=== PATIENT | female | born 1990 | race Caucasian/White ===

== ENCOUNTER → 2020-05-15 10:20 | Outpatient (BNVA) | payer OTHER, SELFPAY | PROVIDERS: Visit Provider Advanced Practice Midwife | DX: Z76.89 Persons encountering health services in other specified circumstances (principal) ==

== ENCOUNTER 2020-07-09 15:37 | Outpatient (REF) | payer OTHER, SELFPAY | END 2020-07-09 15:38 | disposition home or self-care (01) | LOC: HO.LAB 15:37 | PROVIDERS: PCP Internal Medicine; Visit Provider Internal Medicine | DX: Z20.822 Contact with and (suspected) exposure to COVID-19 (principal) | CPT/HCPCS: 36415; C9803; U0003; U0005 ==

== ENCOUNTER 2020-07-22 15:41 | Outpatient (REF) | payer OTHER, SELFPAY | END 2020-07-22 15:42 | disposition home or self-care (01) | LOC: HO.LAB 15:41 | PROVIDERS: Visit Provider Internal Medicine | DX: Z20.822 Contact with and (suspected) exposure to COVID-19 (principal) | CPT/HCPCS: 36415; C9803; U0003; U0005 ==

== ENCOUNTER 2020-07-31 15:38 | Outpatient (REF) | payer OTHER, SELFPAY ==
--- NOTE | ~2020-07-31 | US_ITS ---
EXAMINATION: US PELVIS US TRANSVAGINAL CLINICAL INFORMATION: Pelvic and perineal pain. COMPARISON: None TECHNIQUE: Ultrasound of the pelvis is performed using both transabdominal and transvaginal transducers along with Doppler. Transvaginal imaging is performed due to inadequate visualization transabdominally. FINDINGS: UTERUS: The uterus is anteverted and measures 9.8 x 4 x 5.5 cm. There is an IUD present within the endometrial canal. This limits evaluation of the endometrial thickness. The uterus is smooth in contour and has normal myometrial echogenicity. No visible fibroid. ADNEXA: Both ovaries are visualized. There is normal color flow to the adnexa. There is no ovarian torsion. There is no pelvic ascites or fluid collection. Right ovary measures 5.2 x 4.8 x 4 cm. Volume 52.3 mL. There is a 4.4 x 3.5 x 4.2 cm anechoic cyst. There are some low-grade internal echoes anteriorly, artifactual versus mild internal complexity. Left ovary measures 2.6 x 2.2 x 2.0 cm. Volume 6 mL. US/US pelvic complete IMPRESSION: 1. Right ovarian mildly complex 4.4 x 3.5 x 4.2 cm cyst. Recommend followup ultrasound in 6 weeks. 2. IUD present within the endometrial canal.
--- NOTE | ~2020-07-31 | US_ITS ---
EXAMINATION: US PELVIS US TRANSVAGINAL CLINICAL INFORMATION: Pelvic and perineal pain. COMPARISON: None TECHNIQUE: Ultrasound of the pelvis is performed using both transabdominal and transvaginal transducers along with Doppler. Transvaginal imaging is performed due to inadequate visualization transabdominally. FINDINGS: UTERUS: The uterus is anteverted and measures 9.8 x 4 x 5.5 cm. There is an IUD present within the endometrial canal. This limits evaluation of the endometrial thickness. The uterus is smooth in contour and has normal myometrial echogenicity. No visible fibroid. ADNEXA: Both ovaries are visualized. There is normal color flow to the adnexa. There is no ovarian torsion. There is no pelvic ascites or fluid collection. Right ovary measures 5.2 x 4.8 x 4 cm. Volume 52.3 mL. There is a 4.4 x 3.5 x 4.2 cm anechoic cyst. There are some low-grade internal echoes anteriorly, artifactual versus mild internal complexity. Left ovary measures 2.6 x 2.2 x 2.0 cm. Volume 6 mL. US/US transvaginal IMPRESSION: 1. Right ovarian mildly complex 4.4 x 3.5 x 4.2 cm cyst. Recommend followup ultrasound in 6 weeks. 2. IUD present within the endometrial canal.
== END 2020-07-31 15:39 | disposition home or self-care (01) ==
LOC: HO.US 15:38
PROVIDERS: Visit Provider Advanced Practice Midwife
DX: R10.2 Pelvic and perineal pain (principal)
CPT/HCPCS: 76830; 76856

== ENCOUNTER 2020-08-15 13:53 | Outpatient (REF) | payer OTHER, SELFPAY ==
[2020-08-16 13:25] LABS: BV Int Neg Control Negative (Negative); BV Int Pos Control Positive (Positive)
== END 2020-08-15 13:54 | disposition home or self-care (01) ==
LOC: HO.LAB 13:53
PROVIDERS: Visit Provider Advanced Practice Midwife
DX: Z01.419 Encounter for gynecological examination (general) (routine) without abnormal findings (principal); N89.8 Other specified noninflammatory disorders of vagina; R10.2 Pelvic and perineal pain; B36.9 Superficial mycosis, unspecified; N83.299 Other ovarian cyst, unspecified side; Z86.16 Personal history of COVID-19
CPT/HCPCS: 87480; 87510; 87660

== ENCOUNTER 2020-09-04 13:24 | Outpatient (REF) | payer OTHER, SELFPAY ==
--- NOTE | ~2020-09-04 | US_ITS ---
EXAMINATION: ULTRASOUND OF THE PELVIS CLINICAL INFORMATION: Pelvic and perineal pain. COMPARISON: 07/31/2020. TECHNIQUE: Transabdominal and transvaginal pelvic ultrasound. A transvaginal study was performed in addition to the transabdominal study which did not yield an adequate examination of the uterus and ovaries due to superimposed distended gas-filled loops of bowel. FINDINGS: The uterus is normal in size and appearance, measuring 8.9 x 4.4 x 5.9 cm longitudinally, anteroposteriorly and transversely. The endometrial stripe thickness is normal, measuring 0.5 cm in thickness. There is an IUD in place. No focal myometrial mass is seen. The ovaries bilaterally are visualized, with the right ovary measuring 5.9 x 3.9 x 4.5 cm and the left ovary measuring 2.6 x 2.2 x 1.7 cm. Persistent appearance of a cyst in the right ovary measuring 5.1 x 3.1 x 3.8 cm. There is a thin internal septation. Mild internal echoes. This is similar in appearance to prior. No pelvic free fluid. US/US pelvic complete IMPRESSION: Similar appearance of the right ovarian cyst with a thin internal septation. Given the presence of the septation, additional follow-up can be performed in 6-12 weeks.
--- NOTE | ~2020-09-04 | US_ITS ---
EXAMINATION: ULTRASOUND OF THE PELVIS CLINICAL INFORMATION: Pelvic and perineal pain. COMPARISON: 07/31/2020. TECHNIQUE: Transabdominal and transvaginal pelvic ultrasound. A transvaginal study was performed in addition to the transabdominal study which did not yield an adequate examination of the uterus and ovaries due to superimposed distended gas-filled loops of bowel. FINDINGS: The uterus is normal in size and appearance, measuring 8.9 x 4.4 x 5.9 cm longitudinally, anteroposteriorly and transversely. The endometrial stripe thickness is normal, measuring 0.5 cm in thickness. There is an IUD in place. No focal myometrial mass is seen. The ovaries bilaterally are visualized, with the right ovary measuring 5.9 x 3.9 x 4.5 cm and the left ovary measuring 2.6 x 2.2 x 1.7 cm. Persistent appearance of a cyst in the right ovary measuring 5.1 x 3.1 x 3.8 cm. There is a thin internal septation. Mild internal echoes. This is similar in appearance to prior. No pelvic free fluid. US/US transvaginal IMPRESSION: Similar appearance of the right ovarian cyst with a thin internal septation. Given the presence of the septation, additional follow-up can be performed in 6-12 weeks.
== END 2020-09-04 13:25 | disposition home or self-care (01) ==
LOC: HO.US 13:24
PROVIDERS: PCP Internal Medicine; Visit Provider Advanced Practice Midwife
DX: R10.2 Pelvic and perineal pain (principal); N83.299 Other ovarian cyst, unspecified side
CPT/HCPCS: 76830; 76856

== ENCOUNTER → 2020-09-11 12:14 | Outpatient (BNVA) | payer OTHER, SELFPAY | PROVIDERS: PCP Internal Medicine; Visit Provider Advanced Practice Midwife ==

== ENCOUNTER → 2020-09-16 13:16 | Outpatient (BNVA) | payer OTHER, SELFPAY | PROVIDERS: PCP Internal Medicine; Visit Provider Advanced Practice Midwife | DX: Z30.432 Encounter for removal of intrauterine contraceptive device (principal) | CPT/HCPCS: 58301 ==

== ENCOUNTER 2020-11-24 11:09 | Outpatient (REF) | payer OTHER, SELFPAY ==
--- NOTE | ~2020-11-24 | US_ITS ---
EXAMINATION: PELVIC ULTRASOUND CLINICAL INFORMATION: Follow-up ovarian cyst COMPARISON: Previous pelvic ultrasound most recent 09/04/2020 TECHNIQUE: Transabdominal and transvaginal pelvic ultrasound was performed. Transvaginal exam was performed for better visualization of uterus and ovaries. FINDINGS: There is an intrauterine gestational sac and yolk sac. Mean sac diameter measures 0.9 cm suggesting gestational age of 5 weeks 3 days. The uterus is anteverted and measures 9 x 5 x 5.3 cm in dimension. No focal uterine lesion is seen. There are nabothian cysts in the cervix. The right ovary measures 3.3 x 1.8 x 1.9 cm and is normal-appearing. The previously identified 5 x 3 x 4 cm complex cyst on 09/04/2020 exam is no longer seen. The left ovary measures 2.5 x 2.4 x 3.2 cm. There are 2 new left ovarian cysts. There is a simple cyst measuring 2.4 x 1.6 x 2.3 cm in the left ovary. There is a complex cyst measuring 1.9 x 1.1 x 2.2 cm in the left ovary. There is no fluid in the pelvis. US/US pelvic and transvaginal IMPRESSION: Intrauterine gestational sac and yolk sac. Mean sac diameter suggests gestational age of 5 weeks 3 days. Resolved right ovarian complex cyst. 2 left ovarian cysts, largest measuring 2.4 x 1.6 x 2.3 cm.
== END 2020-11-24 11:10 | disposition home or self-care (01) ==
LOC: HO.US 11:09
PROVIDERS: Visit Provider Advanced Practice Midwife
DX: N83.299 Other ovarian cyst, unspecified side (principal)
CPT/HCPCS: 76830; 76856

== ENCOUNTER → 2020-11-25 15:46 | Outpatient (BNVA) | payer OTHER, SELFPAY | PROVIDERS: PCP Internal Medicine; Visit Provider Advanced Practice Midwife ==

== ENCOUNTER 2021-02-03 12:48 | Outpatient (REF) | payer OTHER, SELFPAY ==
--- NOTE | ~2021-02-03 | US_ITS ---
EXAMINATION: US PELVIS CLINICAL INFORMATION: Left ovarian cyst COMPARISON: Previous pelvic ultrasound November 2020 TECHNIQUE: Ultrasound of the pelvis is performed using both transabdominal and transvaginal transducers along with Doppler. Transvaginal imaging is performed due to inadequate visualization transabdominally. FINDINGS: Uterus: The uterus is anteverted and measures 8.9 x 4.3 x 6.6 cm. Intrauterine is no longer seen. The double wall endometrial thickness is 4 mm. The uterus is smooth in contour and has normal myometrial echogenicity. No visible fibroid. Adnexa: Both ovaries are visualized. There is normal color flow to the adnexa. There is no ovarian torsion. There is no pelvic ascites or fluid collection. Right ovary measures 3.5 x 1.8 x 2.3 cm. Left ovary measures 2.9 x 1.9 x 2.2 cm. US/US pelvic and transvaginal IMPRESSION: Normal pelvic ultrasound. No ovarian cyst. Intrauterine no longer seen.
== END 2021-02-03 12:49 | disposition home or self-care (01) ==
LOC: HO.US 12:48
PROVIDERS: PCP Internal Medicine; Visit Provider Advanced Practice Midwife
DX: N83.202 Unspecified ovarian cyst, left side (principal)
CPT/HCPCS: 76830; 76856

== ENCOUNTER → 2021-02-19 09:21 | Outpatient (BNVA) | payer OTHER, SELFPAY | PROVIDERS: PCP Internal Medicine; Visit Provider Advanced Practice Midwife ==

== ENCOUNTER 2021-02-24 11:01 | Emergency (ER) | payer OTHER, SELFPAY ==
[2021-02-24 11:12] VITALS: BP 124/75; PULSE 88; RESP 16; TEMP 36.4; O2SAT 98; BMI 31.3
--- NOTE | 2021-02-24 11:43 | ED.NECK ---
HPI - Neck Pain/Injury General Chief Complaint: Neck Pain/Injury Stated Complaint: neck pain Time Seen by Provider: 02/24/21 11:43 Source: patient Mode of arrival: ambulatory Limitations: no limitations History of Present Illness HPI Narrative: This is a 30-year-old female who is coming from a detention with 3 days of atraumatic neck pain and tightness. She states that she is under a lot of stress right now and she notes that when she is under a lot of stress she gets muscle tension and eventually her neck becomes stiff. She states this frequently happens to her. She is unable to move her head side to side, and she states that she can only look up and down however, this causes her pain. She denies falls, loss of consciousness, shortness of breath, chest pain, changes in bowel or bladder patterns, numbness, paresthesias, changes in vision. MD complaint: neck pain Onset (ago): day(s) (Three days worse today) Place: other (Currently homeless detention) Severity: moderate Quality: aching and spasming Duration: constant and progressively worsening Relieving factors: none Exacerbating factors: movement of neck Associated symptoms: none Treatments prior to arrival: none Related Data Previous Rx's Medication Instructions Recorded medroxyprogesterone 150 mg/mL 150 mg IM [id number] #1 ml 02/19/21 intramuscular suspension (Depo-Provera) cyclobenzaprine 10 mg tablet 10 mg PO Q8H PRN #14 tab 02/24/21 lidocaine 5 % topical patch 1 patch TOPICAL DAILY #15 ea 02/24/21 (Lidoderm) naproxen 500 mg tablet 500 mg PO BID PRN #10 tab 02/24/21 Allergies Allergy/AdvReac Type Severity Reaction Status Date / Time shellfish derived Allergy Mild Swelling Verified 02/19/21 09:48 dog dander Allergy Unknown Unknown Verified 02/19/21 09:48 Fish Containing Products Allergy Unknown Unknown Verified 02/19/21 09:48 cat dander Allergy Unknown Verified 02/19/21 09:48 Review of Systems Review of Systems: Constitutional : No trauma, No Weight loss, No Fever, No Chills, ENT/Mouth : No Hearing loss, No Ear Pain, No Nasal Congestion, No Sinus Pain, No Hoarseness, No sore throat, No Rhinorrhea, No Swallowing Difficulty Cardiovascular : No Chest Pain, No SOB Respiratory : No Cough, No Dyspnea Gastrointestinal : No Nausea, No Vomiting, No Diarrhea, No abdominal Pain, No Hematochezia, No Melena Genitourinary : No Dysuria, No Urinary Frequency, No Hematuria, No Urinary or Bowel Incontinence/retention Musculoskeletal : + Neck pain, No Back pain, No joint stiffness, No joint swelling Skin : No Skin Lesions, No rash or signs of infection Neuro : nO Tingling to b/l arms/legs, No Weakness, No radiation, No Numbness, No headache, no loss of bowel or bladder incontinence, no saddle anesthesia Denies history of IV drug usage. Yes all other systems are reviewed and are negative [facility] Past Medical History Attestation statement: The following information was validated with the patient. Source: old records reviewed Medical History Left ovarian cyst Surgical History History of D&C Family History Family History Father High cholesterol Arthritis Diabetes Hypertension Mother Diabetes Maternal Grandmother Breast cancer Social History Social History Alcohol intake: never Patient Tobacco Use Status: Never used Tobacco Advance Directives: No Advance Directives Information Provided: No Patient : No Sexual orientation: Straight/Heterosexual Gender identity: Female Physical Exam Vital Signs: Vital Signs: Last Vital Signs Temp 97.5 F 02/24/21 11:12 Pulse 88 02/24/21 11:12 Resp 16 02/24/21 11:12 BP 124/75 02/24/21 11:12 Pulse Ox 98 02/24/21 11:12 Body Mass Index 31.3 vital signs have been reviewed as normal and appeared to be correct. Blood pressure normal. Heart rate normal. Respiration rate normal. Temperature normal. Oxygen saturation normal. Appearance: Alert. Oriented X3. No acute distress. Head: Normal external exam. Normocephalic. Atraumatic. Eyes: PERRLA. EOMI. Conjunctiva and sclera normal. Eyelids normal. ENT: Pharynx normal. Uvula midline. Moist mucous membranes. Neck: Normal inspection. +Stiff neck with painful ROM . No adenopathy. Thyroid Normal. Trachea midline. No meningeal signs. No neck mass noted. Tender to palpation of bilateral paracervical musculature and mid cervical tenderness. No step-offs or deformities noted. Patient neuro intact bilaterally and distally on all 4 extremities. Reflexes intact bilaterally and distally in all 4 extremities. No rashes/lesion/induration/fluctuance or signs of infection noted. No edema noted. CVS: Normal heart rate and rhythm. Heart sound normal. No murmurs noted. Pulses normal throughout. Respiratory: No respiratory distress. Painless inspiration. Breath sounds normal. No wheezes/rales/rhonchi noted. Chest nontender. No accessory muscle usage noted or decreased air movement noted. Back: Full range of motion noted. No obvious deformities, or edema. Full ROM in back and lower extremities. + cervical paraspinous tenderness bilaterally Skin: Skin warm and dry. Normal skin color. Normal skin turgor. No rashes/lesions/lacerations noted. Extremities: Extremities exhibit normal range of motion. Extremities nontender. Neuro: Oriented X 3. No motor deficit. No sensory deficit. Reflexes normal. Normal steady gait. Course Course Course Narrative: This is a 30-year-old female that presents with 3 days of progressive neck pain and stiffness. She denies any trauma. She states this frequently happens to her when she is stressed out. She states she is under a lot of stress. She is currently staying at a detention and has 2 kids. She denies any numbness, tingling, chest pain, changes in bowel habits. Upon physical examination there is tenderness to the paraspinous muscles in the cervical region, limited range of motion due to pain and muscle tightness. Based off of the physical exam findings, and patient history imaging is not warranted at this time. This is likely a muscular process. Neck spasms. She will be sent home on cyclobenzaprine 10 mg, naproxen, and Lidoderm cream. She has also been instructed to return to the emergency department new or worsening symptoms. And she has also been told to follow-up with her PCP. [facility] - Neck Pain/Injury Medical Records Attestation: I reviewed the patient's medical records. Discharge Plan Discharge Clinical Impression: Muscle spasms of neck, Neck pain Patient Disposition: Home, Self-Care Instructions: Neck Pain (ED), Chronic Neck Pain (DC) Additional Instructions: Take all medications as prescribed. Cyclobenzaprine kidney is sleepy please do not drive on this medication, it may be best for you to take this at night. You can apply moist heat to the area. Follow-up with your PCP Return to the emergency department with new or worsening symptoms, or if he develops fevers, chills, shortness of breath, chest pain, bladder/bowel incontinence, or if you cannot feel your legs. Prescriptions: New naproxen 500 mg tablet 500 mg PO BID PRN (Reason: pain) Qty: 10 RF: 0 lidocaine [Lidoderm] 5 % adhesive patch,medicated 1 patch topical DAILY Qty: 15 RF: 0 cyclobenzaprine 10 mg tablet 10 mg PO Q8H PRN (Reason: Muscle spasm) Qty: 14 RF: 0 No Action medroxyprogesterone [Depo-Provera] 150 mg/mL suspension 150 mg IM [id number] Qty: 1 RF: 3 Referrals: Pal Barajas MD [Primary Care Provider] - 2 days Stand Alone Forms: Work/School Release
== END 2021-02-24 12:06 | disposition home or self-care (01) ==
PROVIDERS: Emergency Provider Emergency Medicine; PCP Internal Medicine
DX: M62.838 Other muscle spasm (principal); M54.2 Cervicalgia; Z79.899 Other long term (current) drug therapy; Z59.0 Homelessness
CPT/HCPCS: 99283

== ENCOUNTER 2022-01-14 13:57 | Outpatient (REF) | payer OTHER, SELFPAY ==
[2022-01-15 03:27] LABS: CT PCR NOT DETECTED (Not Detect.); NG PCR NOT DETECTED (Not Detect.)
[2022-01-15 13:23] LABS: BV Int Neg Control Negative (Negative); BV Int Pos Control Positive (Positive)
[2022-01-20 22:07] LABS: HPV mRNA E6/E7 rflx Not Detected (Not Detected)
== END 2022-01-14 13:58 | disposition home or self-care (01) ==
LOC: HO.LAB 13:57
PROVIDERS: Visit Provider Advanced Practice Midwife
DX: Z01.419 Encounter for gynecological examination (general) (routine) without abnormal findings (principal); Z11.51 Encounter for screening for human papillomavirus (HPV)
CPT/HCPCS: 87480; 87491; 87510; 87591; 87624; 87660; 88142

== ENCOUNTER 2022-02-03 22:32 | Emergency (ER) | payer OTHER, SELFPAY ==
--- NOTE | ~2022-02-03 | XR_ITS ---
EXAMINATION: XR HAND, RIGHT CLINICAL INFORMATION: Trauma/laceration COMPARISON: None TECHNIQUE: PA, lateral, and oblique views of the right hand. FINDINGS: The bones and soft tissues are normal. No fracture. Alignment is anatomic. Joint spaces are maintained. No erosions or soft tissue calcifications. No radiopaque foreign bodies are seen. XR/XR hand RT min 3V IMPRESSION: Normal right hand.
[2022-02-03 23:23] VITALS: BP 129/86; PULSE 78; RESP 16; TEMP 36.4; O2SAT 100; BMI 30.7
[2022-02-04] VITALS: BP 121/72; PULSE 97; RESP 16; TEMP 37.1; O2SAT 97
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
[2022-02-04] MEDS: Ibuprofen 600 MG TABLET PO (01:19)
[2022-02-04] MEDS: Diphth,Pertus(ACell),Tet Adult 0.5 ML SYRINGE IM (01:20)
[2022-02-04] MEDS: Lidocaine HCl 2 % MPF 5 ML VIAL 10 ML SUBCUT (01:30)
[2022-02-04 03:01] VITALS: BP 153/85; PULSE 67; RESP 16; TEMP 36.6; O2SAT 98
== END 2022-02-04 03:04 | disposition home or self-care (01) ==
PROVIDERS: Emergency Provider Emergency Medicine; PCP Internal Medicine
DX: S61.411A Laceration without foreign body of right hand, initial encounter (principal); X78.8XXA Intentional self-harm by other sharp object, initial encounter; Z72.89 Other problems related to lifestyle; Z59.01 Sheltered homelessness; Y93.89 Activity, other specified; Y92.89 Other specified places as the place of occurrence of the external cause; Y99.9 Unspecified external cause status
CPT/HCPCS: 12001; 73130; 90471; 90715; 99283; 99284

== ENCOUNTER 2022-02-18 09:18 | Emergency (ER) | payer OTHER, SELFPAY ==
[2022-02-18 09:19] VITALS: BP 125/77; PULSE 70; RESP 18; TEMP 36.6; O2SAT 100; BMI 30.7
--- NOTE | 2022-02-18 09:53 | ED.GENADULT ---
HPI - General Adult General Chief complaint: General Medical Stated complaint: Stitches removal Time Seen by Provider: 02/18/22 09:53 Source: patient and old records reviewed Mode of arrival: ambulatory Limitations: no limitations History of Present Illness complaint: sutures removal Onset (ago): day(s) (02/04) Location: right and upper extremity Radiation: non-radiation Severity: mild Relieving factors: none Exacerbating factors: none Associated symptoms: denies other symptoms Treatments prior to arrival: other (4 sutures) Related Data Home Medications Medication Instructions Recorded Confirmed ibuprofen 800 mg tablet 800 mg PO Q8H PRN 08/13/21 01/14/22 Previous Rx's Medication Instructions Recorded metronidazole 500 mg tablet 500 mg PO BID 7 days #14 tabs 01/28/22 Allergies Allergy/AdvReac Type Severity Reaction Status Date / Time shellfish derived Allergy Mild Swelling Verified 02/03/22 23:23 dog dander Allergy Unknown Unknown Verified 02/03/22 23:23 Fish Containing Products Allergy Unknown Unknown Verified 02/03/22 23:23 cat dander Allergy Unknown Verified 02/03/22 23:23 gauze AdvReac Mild rash, Uncoded 02/03/22 23:23 itch, redness Review of Systems Review of Systems: Constitutional : No Fever, No Chills, Cardiovascular : No Chest Pain, No SOB Respiratory : No Dyspnea Gastrointestinal : No abdominal pain Musculoskeletal : No Joint Swelling Skin : No rash, positive skin laceration Neuro : No Weakness, No Numbnes PMFSH Past Medical History Attestation statement: The following information was validated with the patient. Medical History Costochondritis Left ovarian cyst Migraines Obesity Surgical History History of D&C Family History Family History Father High cholesterol Arthritis Diabetes Hypertension Mother Diabetes Maternal Grandmother Breast cancer Social History Social History Housing: Homeless (Living in a senior care) Alcohol intake: never Patient Tobacco Use Status: Never used Tobacco e-Cigarette/Vaping Use: Never Used Second Hand Smoke Exposure: No Advance Directives: No service: No Current occupational status: unemployed Sexual orientation: Straight/Heterosexual Gender identity: Female Cognitive needs: No Hearing needs: No Vision needs: No Physical Exam ED Vital Signs: Vital Signs - 24 hr 02/18/22 09:19 Temperature 98 F Pulse Rate 70 Respiratory Rate 18 Blood Pressure 125/77 Pulse Oximetry 100 Oxygen Delivery Method Room Air BMI result Body Mass Index 30.7 Appearance: Alert. Oriented X3. No acute distress. Eyes: Pupils equal, round and reactive to light. ENT: Pharynx normal. Neck: Normal inspection. Neck supple. CVS: =Pulses normal. Respiratory: No respiratory distress. Skin: Skin warm and dry. Normal skin color. Extremities: R hand 4 sutures intact no signs of infection - no dehiscence Neuro: Oriented X 3. No motor deficit. No sensory deficit. Procedures Procedure Narrative Procedure Narrative: RN removed 4 sutures without issue no signs of infection Medical Decision Making MDM Narrative Medical decision making narrative: 02/04 uninfected sutures - will remove 4 no signs of wound dehiscence - no signs of infection Discharge Plan Discharge Clinical Impression: Encounter for removal of sutures Patient Disposition: Home, Self-Care Instructions: Stitches Removal (ED) Additional Instructions: return to ED for any worsening symptoms or concerns monitor for redness, fevers, yellow drainage Prescriptions: No Action metronidazole 500 mg tablet 500 mg PO BID 7 Days Qty: 14 0RF ibuprofen 800 mg tablet 800 mg PO Q8H PRN Stand Alone Forms: Work/School Release Interventions: ED Discharge Assessment Last Done: 02/18/22 10:12 Discharge Date/Time: 02/18/22 10:16
== END 2022-02-18 10:16 | disposition home or self-care (01) ==
LOC: HO.ED 10:14
PROVIDERS: Emergency Provider Emergency Medicine; PCP Internal Medicine
DX: Z48.02 Encounter for removal of sutures (principal)
CPT/HCPCS: 99282; 99283

== ENCOUNTER 2022-05-11 10:17 | Outpatient (REF) | payer OTHER, SELFPAY ==
[2022-05-11 10:25] LABS: MANUAL DIFF FLAG NO
[2022-05-11 11:45] LABS: Basophils Absolute Auto 0.1 X10*3/uL (0.0-0.2); Basophils Percent Auto 1.2 % (0-2); Eosinophils Absolute Auto 0.3 X10*3/uL (0.0-0.4); Eosinophils Percent Auto 4.4 % (0-4); Hematocrit 42.7 % (37.0-47.0); Hemoglobin 13.8 g/dl (12.0-16.0); Imm Gran Abs Auto 0.01 X10*3/uL (0.00-0.03); Imm Gran Pct Auto 0.1 % (0.0-0.4); Lymphocytes Absolute Auto 2.5 X10*3/uL (1.2-4.9); Lymphocytes Percent Auto 34.5 % (20-40); Mean Corpuscular HGB Conc 32.3 g/dl (31.0-35.0); Mean Corpuscular Hemoglobin 31.6 pg (27.0-33.0); Mean Corpuscular Volume 97.7 fL (80.0-98.0); Mean Platelet Volume 10.1 fL (9.4-12.3); Monocytes Absolute Auto 0.5 X10*3/uL (0.1-1.2); Neutrophils Absolute Auto 3.9 x10*3/uL (2.0-8.3); Neutrophils Percent Auto 52.8 % (45-73); Platelet Count 408 X10*3/uL (160-400); Red Blood Count 4.37 X10*6/uL (4.20-5.50); Red Cell Distribution Width 11.5 % (11.0-16.0); White Blood Count 7.3 X10*3/uL (4.8-10.8)
[2022-05-11 13:30] LABS: Alanine Aminotransferase 17 U/L (0-31); Albumin Level 4.2 g/dL (3.5-5.0); Alkaline Phosphatase 109 U/L (39-117); Anion Gap 12 (12-20); Aspartate Amino Transferase 18 U/L (5-31); Bilirubin Total 0.4 mg/dL (0.0-1.0); Blood Urea Nitrogen 9 mg/dL (9-16); Calcium 9.8 mg/dL (8.4-10.2); Carbon Dioxide 27 mmol/L (22-29); Chloride 108 mmol/L (96-108); Cholesterol 201 mg/dL; Estimated Glomerular Filt Rate > 60; Glucose Fasting 89 mg/dL (60-99); HDL Cholesterol 46 mg/dL; LDL Cholesterol Calculated 131 mg/dl; Potassium 4.6 mmol/L (3.3-5.1); Sodium 142 mmol/L (135-145); Thyroid Stimulating Hormone 0.79 uIU/mL (0.32-4.0); Total Protein 7.2 g/dL (6.5-8.0); Triglycerides 120 mg/dL
== END 2022-05-11 10:18 | disposition home or self-care (01) ==
LOC: HO.LAB 10:17
PROVIDERS: PCP Internal Medicine; Visit Provider Internal Medicine
DX: E66.9 Obesity, unspecified (principal)
CPT/HCPCS: 36415; 80053; 80061; 84443; 85025

== ENCOUNTER 2023-01-20 13:28 | Outpatient (REF) | payer OTHER, SELFPAY ==
[2023-01-22 16:34] LABS: TS Negative Control Passed; TS Panel A 0; TS Panel B 0; TS Positive Control Passed; TSpotTB Negative (Negative)
== END 2023-01-20 13:29 | disposition home or self-care (01) ==
LOC: HO.LAB 13:28
PROVIDERS: PCP Internal Medicine; Visit Provider Internal Medicine
DX: Z11.1 Encounter for screening for respiratory tuberculosis (principal)
CPT/HCPCS: 36415; 86481

== ENCOUNTER 2024-01-10 12:13 | Outpatient (AMB) | payer OTHER, SELFPAY ==
--- NOTE | 2024-01-10 12:32 | A.OFFPC_ITS ---
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 Accompanied by: Self / Same As Patient Allergies shellfish derived Allergy (Mild, Verified 01/10/24 12:44) Swelling dog dander Allergy (Unknown, Verified 01/10/24 12:44) Unknown Fish Containing Products Allergy (Unknown, Verified 01/10/24 12:44) Unknown cat dander Allergy (Verified 01/10/24 12:44) Unknown gauze Adverse Reaction (Mild, Uncoded 01/10/24 12:44) rash, itch, redness Medication List - Last Reconciled 01/10/24 by Mona Cole MD No Known Home Meds Tobacco use date assessed: 01/10/24 Dental Screening Dental Screen Date: 01/10/24 Did you have a dental visit in the last 12 months?: Yes Did you have a dental problem in the last 6 months where you did not have access to dental care?: No Was dental information given to patient?: Patient has dentist HPI HPI Comments History of Present Illness Details This is a 33-year-old female with obesity and mild recurrent major depression that comes today complaining of right pelvic pain that started about a month ago. She said she had the same symptoms about 2 years ago in which she had an IUD and pelvic ultrasound showed a right ovarian cyst. They repeat the ultrasound and the ovarian cyst was decrease in size. She had a Depo injection that she started having few months ago. Last Pap smear was 2021. Will order ultrasound of the pelvis. She is obese with a BMI of 32.3 and was advised to diet and exercise. For her depression I will start her on bupropion. [facility] Medical History (Updated 01/10/24 @ 13:16 by Mona Cole MD) Costochondritis Migraines Obesity Left ovarian cyst Early stage of Surgical History History of D&C Family History Father High cholesterol Arthritis Diabetes Hypertension Mother Diabetes Maternal Grandmother Breast cancer Social History Housing: Apartment (Living in a half-way) Alcohol intake: never Patient Tobacco Use Status: Never used Tobacco e-Cigarette/Vaping Use: Never Used Second Hand Smoke Exposure: No service: No Current occupational status: unemployed Sexual orientation: Straight/Heterosexual Gender identity: Female Cognitive needs: No Hearing needs: No Vision needs: No Female Reproductive History Menstrual Age of Menarche: 13 Questionnaire PHQ-9 Over the last 2 weeks, how often have you been bothered by any of the following problems? 1. Little interest or pleasure in doing things: several days 2. Feeling down, depressed, or hopeless: more than half the days 3. Trouble falling or staying asleep, or sleeping too much: more than half the days 4. Feeling tired or having little energy: more than half the days 5. Poor appetite or overeating: several days 6. Feeling bad about yourself - or that you are a failure or have let yourself or your family down: more than half the days 7. Trouble concentrating on things, such as reading the newspaper or watching television: not at all 8. Moving or speaking so slowly that other people could have noticed. Or the opposite - being so fidgety or restless that you have been moving around a lot more than usual: not at all 9. Thoughts that you would be better off or of hurting yourself in some way: several days Total score: 11 Depression Screening Interpretation: Positive Depression Screening Follow-up: Existing condition, New Medication prescribed and Follow-up Visit Requested Depression Screening Done: Yes [id number] - PHQ-9 Billing: Yes Source: Developed by Drs. Eliecer Mcghee, Mariya La, Abel Martinez and colleagues, with an educational chante from [employer]. Thrive Questionnaire Date Thrive assessed: 01/10/24 I am a: Patient What is your living situation today?: I have a steady place to live Within the past 12 months, did the food you bought not last and you didn't have the money to get more?: Never true Within the past 12 months, did you worry whether your food would run out before you got money to buy more?: Never true Do you have trouble paying for medicines?: No Do you have trouble getting transportation to medical appointments?: No Do you have trouble paying your heating and electricity bill?: No Do you have trouble taking care of your child, family member or friend?: No Do you have trouble with day-to-day activities such as bathing, preparing meals, shopping, managing finances, etc.?: No Are you currently unemployed and looking for a job?: No Are you interested in more education?: No Please select the resources that you would like help with: None Currently or been in a relationship where the following occur: No concerns reported THRIVE Score: 0 AUDIT C Alcohol Use Questionnaire (AUDIT-C) 1. How often do you have a drink containing alcohol?: Never Total Score: 0 Score Reviewed/Action Taken: No JOSH-7 AMB Questionnaire JOSH-7 Date JOSH - 7 assessed: 01/10/24 Feeling nervous, anxious, or on edge: 1 = Several days Not being able to stop or control worryin = Not at all Worrying too much about different things: 2 = More than half the days Trouble relaxin = More than half the days Being so restless that it is hard to sit still: 2 = More than half the days Becoming easily annoyed or irritable: 1 = Several days Feeling afraid as if something awful might happen: 1 = Several days Total JOSH-7 score (0-4 normal; 5-9 mild; 10-14 moderate; 15-21 severe): 9 Source: Developed by Drs. Eliecer Mcghee, Mariya La, Abel Martinez and colleagues, with an educational chante from [employer]. JOSH-7 Assessment Billing JOSH-7 Assessment Tool: JOSH-7 Assessment 89689 Review of Systems Const All systems reviewed & are unremarkable except as noted in HPI and below Card Denies chest pain at rest, Denies chest pain with activity, Denies edema, Denies irregular heart rhythm, Denies claudication, Denies dyspnea, Denies dyspnea on exertion, Denies orthopnea, Denies paroxysmal nocturnal dyspnea and Denies slow heart rate Resp Denies cough, Denies dyspnea and Denies dyspnea on exertion GI Reports abdominal pain, Denies change in bowel habits, Denies excessive flatus, Denies nausea and Denies vomiting Denies urinary incontinence, Denies urinary hesitancy and Denies urinary urgency Psych Reports depression Physical exam (Primary Care) Vital Signs: Last Vital Signs BP 114/70 01/10/24 12:33 BMI result Body Mass Index 32.3 BMI Assessment/Plan discussion: High BMI High, discussed plan: lifestyle, weight reduction, dietary and physical activity Tobacco/Smoking Status: Tobacco use Status Tobacco use date assessed 01/10/24 01/10/24 12:39 Patient Tobacco Use Status Never used Tobacco 01/10/24 12:39 e-Cigarette/Vaping Use Never Used 01/10/24 12:39 PHQ-9: PHQ-9 Score PHQ-9: Total score 11 01/10/24 12:49 Depression Screening Interpretation: Positive Depression Screening Follow-up: Existing condition, New Medication prescribed and Follow-up Visit Requested Thrive Assessment: Date of Thrive Assessment Date Thrive assessed 01/10/24 01/10/24 12:39 Currently or been in a relationship where the following occur: No concerns reported Resp Effort & Inspection: normal respiratory effort Auscultation: clear to auscultation bilaterally Cardio Jugular venous distension: no JVD Rate: regular rate Rhythm: regular rhythm Heart sounds: S1 normal heart sound present and S2 normal heart sound present GI Inspection: Yes normal to inspection Palpation (GI): Soft to palpation and Tenderness to palpation present (GI) in the RLQ Auscultation: normal bowel sounds Assessment and Plan Assessment & Plan (1) Mild recurrent major depression: Code(s): F33.0 - Major depressive disorder, recurrent, mild Plan: Start bupropion. Follow-up visit requested. (2) Pelvic pain in female: Code(s): R10.2 - Pelvic and perineal pain Plan: Ultrasound of the pelvis order. (3) Class 1 obesity with body mass index (BMI) of 32.0 to 32.9 in adult: Code(s): E66.9 - Obesity, unspecified; Z68.32 - Body mass index [BMI] 32.0-32.9, adult Qualifiers: Obesity type: due to excess calories Serious obesity comorbidity presence: without serious comorbidity Qualified Code(s): E66.09 - Other obesity due to excess calories; Z68.32 - Body mass index [BMI] 32.0-32.9, adult Plan: Advised to do diet and exercise. BMI goal is less than 30. Orders: Orders Comprehensive [place]. Panel Fast Today E66.9 - Obesity, unspecified, Z68.32 - Body mass index [BMI] 32.0-32.9, adult Lipid Panel Today E66.9 - Obesity, unspecified, Z68.32 - Body mass index [BMI] 32.0-32.9, adult US pelvic and transvaginal Today R10.2 - Pelvic and perineal pain Complete Blood Count Auto Diff Today R10.2 - Pelvic and perineal pain Medications: New bupropion HCl XL 150 mg PO QAM 90 tabs 1RF 90 days F33.0 - Major depressive disorder, recurrent, mild Coding Level of Care Code Est Pt Level 3 (13735) Complex EM visit Add On G2211 Diagnoses Mild recurrent major depression F33.0 Pelvic pain in female R10.2 Class 1 obesity due to excess calories without serious comorbidity with body mass index (BMI) of 32.0 to 32.9 in adult E66.09; Z68.32 Obesity type: due to excess calories Serious obesity comorbidity presence: without serious comorbidity Additional Codes JOSH-7 Assessment Billing - JOSH-7 Assessment Tool: JOSH-7 Assessment [id number] ([id number]) Time Spent (min) 19
[2024-01-10 12:33] VITALS: BP 114/70; BMI 32.3
== END 2024-01-10 12:52 | disposition home or self-care (01) ==
PROVIDERS: PCP Internal Medicine; Visit Provider Internal Medicine
DX: R10.2 Pelvic and perineal pain (principal); F33.0 Major depressive disorder, recurrent, mild; E66.09 Other obesity due to excess calories; Z68.32 Body mass index [BMI] 32.0-32.9, adult
CPT/HCPCS: 96127; 99213; G2211

== ENCOUNTER 2024-01-20 06:52 | Emergency (ER) | payer OTHER, SELFPAY ==
[2024-01-20 07:11] VITALS: BP 144/86; PULSE 76; RESP 18; TEMP 36.5; O2SAT 99; BMI 32.3
--- NOTE | 2024-01-20 07:14 | ED_ITS ---
HPI - Neck Pain/Injury General Chief Complaint: Neck Pain/Injury Stated Complaint: neck pain Time Seen by Provider: 01/20/24 07:14 Source: patient Mode of arrival: ambulatory Limitations: no limitations History of Present Illness ED Provider: Evelia Noyola PA-C HPI Narrative: 33 y/o female presents to the ER for evaluation right-sided neck pain that started 1 week ago and has been getting worse. Patient woke up with the pain. She reports there was intense spasm and tenderness in her muscles on the right side of her neck and upper back. It is worse when she tries to move her head or neck. She took 1 dose of Naprosyn and Tylenol with minimal improvement. She denies any associated headache, fever, chills, chest pain. No associated numbness or tingling in the right upper extremity. No known injury or trauma. No history of similar presentation in the past MD complaint: neck pain Onset (ago): week(s) (1) Place: home Radiation: right lateral Severity: severe Quality: sharp and spasming Duration: constant Relieving factors: immobilization Exacerbating factors: movement of neck Associated symptoms: none Treatments prior to arrival: none Related Data Previous Rx's ?Medication ?Instructions ?Recorded bupropion HCl 150 mg 24 hr tablet, 150 mg PO QAM 90 days #90 tabs 01/10/24 extended release cyclobenzaprine 10 mg tablet 10 mg PO TID PRN muscle spasm #14 01/20/24 tabs ibuprofen 600 mg tablet 600 mg PO Q8H PRN pain #20 tabs 01/20/24 Allergies Allergy/AdvReac Type Severity Reaction Status Date / Time shellfish derived Allergy Mild Swelling Verified 01/20/24 07:12 dog dander Allergy Unknown Unknown Verified 01/20/24 07:12 Fish Containing Products Allergy Unknown Unknown Verified 01/20/24 07:12 cat dander Allergy Unknown Verified 01/20/24 07:12 gauze AdvReac Mild rash, Uncoded 01/20/24 07:12 itch, redness Review of Systems Review of Systems: Yes all other systems are reviewed and are negative [facility] Past Medical History Medical History (Updated 01/20/24 @ 07:26 by THANH Jenkins) Costochondritis Migraines Obesity Left ovarian cyst Early stage of Surgical History History of D&C Family History Family History Father High cholesterol Arthritis Diabetes Hypertension Mother Diabetes Maternal Grandmother Breast cancer Social History Social History Housing: Apartment (Living in a halfway) Alcohol intake: never Patient Tobacco Use Status: Never used Tobacco e-Cigarette/Vaping Use: Never Used Second Hand Smoke Exposure: No Advance Directives: No Advance Directives Information Provided: No service: No Current occupational status: unemployed Sexual orientation: Straight/Heterosexual Gender identity: Female Cognitive needs: No Hearing needs: No Vision needs: No Physical Exam Vital Signs: Vital Signs: Last Vital Signs Temp 97.7 F 01/20/24 07:11 Pulse 76 01/20/24 07:11 Resp 18 01/20/24 07:11 BP 144/86 H 01/20/24 07:11 Pulse Ox 99 01/20/24 07:11 O2 Del Method Room Air 01/20/24 07:11 BMI result Body Mass Index 32.3 Appearance: Alert. Oriented X3. Sitting on the stretcher looking to the right slightly, appears tense Head: normocephalic, atraumatic. Eyes: Pupils equal, round and reactive to light. ENT: Pharynx normal. No tonsillar swelling or exudate. Neck: There is tense muscle spasm palpable on the right side of the neck with tenderness. No midline tenderness of the cervical spine. Limited range of motion of the head and neck due to intense muscle pain CVS: Normal heart rate and rhythm. Pulses normal. Respiratory: No respiratory distress. Breath sounds normal. Skin: Skin warm and dry. Normal skin color. Normal skin turgor. No rashes. Extremities: No lower extremity edema. No joint swelling. Neuro/psych: Oriented X 3. No motor deficit. No sensory deficit. CN II-XII intact. Normal speech and cognition. Medical Decision Making Medical Decision Making MDM Narrative: 33-year-old female presents to the ER for evaluation of right-sided neck pain, muscle spasm and limited range of motion for the last 1 week. No trauma. No associated headache. No recent chiropractor adjustment. Low clinical suspicion for any sort of dissection. Her exam and clinical presentation most consistent with muscle strain and spasm, likely torticollis. Will start her on NSAIDs, muscle relaxers, Tylenol. We discussed other supportive care including massage and gentle range of motion, heating pad. Patient expressed understanding and all questions were answered. She is stable for discharge home, encouraged outpatient follow-up with her PCP. Differential Diagnosis Differential Diagnoses: The differential diagnosis associated with the presentation includes Cervical muscle strain, torticollis, low clinical suspicion for dissection External Record Review External record reviewed: Prior outpatient labs Prescription Management I considered prescription management with: Pain Medication and Other (Muscle relaxer) Critical Care Time Critical Care Time Critical Care Time: No Discharge Plan Discharge Clinical Impression: Torticollis Patient Disposition: Home, Self-Care Instructions: Spasmodic Torticollis (ED) Additional Instructions: Prescribed medications as directed. The muscle relaxer may make you tired, do not drive after taking this medication. Take the prescribed ibuprofen every [id number] hours, take this with food. Recommend Tylenol 975 mg every 6-8 hours around the clock. Apply heat to the area several times per day and gently try to work on range of motion and gently massage the area. If you develop new or worsening symptoms call 911 or come back to the ER for further evaluation. Prescriptions: New ibuprofen 600 mg tablet 600 mg PO Q8H PRN (Reason: pain) Qty: 20 0RF cyclobenzaprine 10 mg tablet 10 mg PO TID PRN (Reason: muscle spasm) Qty: 14 0RF No Action bupropion HCl 150 mg tablet extended release 24 hr 150 mg PO QAM 90 Days Qty: 90 1RF Referrals: Mona Jones MD [Primary Care Provider] - Print Language: Khmer
[2024-01-20] MEDS: Acetaminophen 325 MG TABLET 975 MG PO (07:44)
[2024-01-20] MEDS: Ketorolac Tromethamine 30 MG/ML VIAL IM (07:45)
[2024-01-20 07:50] VITALS: BP 125/80; PULSE 72; RESP 16; TEMP 36.6; O2SAT 97
== END 2024-01-20 07:50 | disposition home or self-care (01) ==
PROVIDERS: Emergency Provider Emergency Medicine; PCP Internal Medicine
DX: M43.6 Torticollis (principal); M54.2 Cervicalgia
CPT/HCPCS: 96372; 99283; 99284; J1885

== ENCOUNTER 2024-01-26 12:42 | Outpatient (REF) | payer OTHER, SELFPAY ==
--- NOTE | ~2024-01-26 | US_ITS ---
EXAMINATION: US PELVIS CLINICAL INFORMATION: Pelvic and perineal pain, last menstrual period 2 weeks ago. COMPARISON: 02/03/2021. TECHNIQUE: Ultrasound of the pelvis is performed using both transabdominal and transvaginal transducers along with Doppler. Transvaginal imaging is performed due to inadequate visualization transabdominally. FINDINGS: The uterus is anteverted and measures 8.3 x 3.9 x 4.9 cm. Endometrial thickness is 3 mm. No significant free fluid. Right ovary measures 2.9 x 1.6 x 2.5 cm, volume 6.1 mm. Left ovary measures 2.9 x 1.4 x 1.8 cm, volume 3.8 mL. Bilateral ovaries are grossly unremarkable. US/US pelvic and transvaginal IMPRESSION: 1. Endometrial thickness is 3 mm. 2. Bilateral ovaries are grossly unremarkable. 3. No significant free fluid. Electronically signed by: Agnieszka Bautista MD 02/08/2024 10:23 AM EDT
== END 2024-01-26 12:43 | disposition home or self-care (01) ==
LOC: HO.US 12:42
PROVIDERS: PCP Internal Medicine; Visit Provider Internal Medicine
DX: R10.2 Pelvic and perineal pain (principal)
CPT/HCPCS: 76830; 76856

== ENCOUNTER 2024-02-21 12:26 | Outpatient (AMB) | payer OTHER, SELFPAY ==
--- NOTE | 2024-02-21 12:33 | A.OFFPC_ITS ---
Vital Signs 02/21/24 12:35 Height 4 ft 11 in Weight 160 lb BMI 32.3 BP 120/80 Blood Pressure Location Lt brachial Position Sitting Intake Visit Reasons: Annual Exam Intake Note: Patient here for an Annual Physical Exam Field Representatives Director Required: No Accompanied by: Self / Same As Patient Allergies shellfish derived Allergy (Mild, Verified 02/21/24 12:42) Swelling dog dander Allergy (Unknown, Verified 02/21/24 12:42) Unknown Fish Containing Products Allergy (Unknown, Verified 02/21/24 12:42) Unknown cat dander Allergy (Verified 02/21/24 12:42) Unknown gauze Adverse Reaction (Mild, Uncoded 02/21/24 12:42) rash, itch, redness Medication List - Last Reconciled 02/21/24 by Mona Cole MD ibuprofen 600 mg PO Q8H PRN Tobacco use date assessed: 01/10/24 Dental Screening Dental Screen Date: 01/10/24 HPI HPI Comments History of Present Illness Details This is a 33-year-old female with mild recurrent major depression that comes for her physical exam. Pap smear done 2021. She has depression with anxiety and declines any type of treatment. Complains of left hip and left lower quadrant abdominal pain and ultrasound was unremarkable. She also complains of episodes of chest pain that happens at rest and went to [facility] ER recently for that matter. [facility] Medical History (Updated 02/21/24 @ 12:56 by Mona Cole MD) Costochondritis Migraines Obesity Left ovarian cyst Early stage of Surgical History History of D&C Family History Father High cholesterol Arthritis Diabetes Hypertension Mother Diabetes Maternal Grandmother Breast cancer Social History Housing: Apartment (Living in a chcf) Alcohol intake: never Patient Tobacco Use Status: Never used Tobacco e-Cigarette/Vaping Use: Never Used Second Hand Smoke Exposure: No service: No Current occupational status: unemployed Sexual orientation: Straight/Heterosexual Gender identity: Female Cognitive needs: No Hearing needs: No Vision needs: No Female Reproductive History Menstrual Age of Menarche: 13 Questionnaire PHQ-9 Over the last 2 weeks, how often have you been bothered by any of the following problems? 1. Little interest or pleasure in doing things: several days 2. Feeling down, depressed, or hopeless: several days 3. Trouble falling or staying asleep, or sleeping too much: more than half the days 4. Feeling tired or having little energy: several days 5. Poor appetite or overeating: not at all 6. Feeling bad about yourself - or that you are a failure or have let yourself or your family down: several days 7. Trouble concentrating on things, such as reading the newspaper or watching television: not at all 8. Moving or speaking so slowly that other people could have noticed. Or the opposite - being so fidgety or restless that you have been moving around a lot more than usual: not at all 9. Thoughts that you would be better off or of hurting yourself in some way: not at all Total score: 6 Depression Screening Interpretation: Positive Depression Screening Follow-up: Existing condition, Follow-up Visit Requested and Declines treatment Depression Screening Done: Yes 73073 - PHQ-9 Billing: Yes Source: Developed by Drs. Eliecer Mcghee, Mariya La, Abel Martinez and colleagues, with an educational chante from [employer]. Thrive Questionnaire Date Thrive assessed: 02/21/24 I am a: Patient What is your living situation today?: I have a steady place to live Within the past 12 months, did the food you bought not last and you didn't have the money to get more?: Sometimes True Within the past 12 months, did you worry whether your food would run out before you got money to buy more?: Sometimes True Do you have trouble paying for medicines?: No Do you have trouble getting transportation to medical appointments?: No Do you have trouble paying your heating and electricity bill?: No Do you have trouble taking care of your child, family member or friend?: No Do you have trouble with day-to-day activities such as bathing, preparing meals, shopping, managing finances, etc.?: No Are you currently unemployed and looking for a job?: Yes Are you interested in more education?: No Please select the resources that you would like help with: Food Currently or been in a relationship where the following occur: No concerns reported THRIVE Score: 2 AUDIT C Alcohol Use Questionnaire (AUDIT-C) 1. How often do you have a drink containing alcohol?: Never Total Score: 0 Score Reviewed/Action Taken: No JOSH-7 AMB Questionnaire JOSH-7 Date JOSH - 7 assessed: 02/21/24 Feeling nervous, anxious, or on edge: 3 = Nearly every day Not being able to stop or control worryin = More than half the days Worrying too much about different things: 1 = Several days Trouble relaxin = More than half the days Being so restless that it is hard to sit still: 2 = More than half the days Becoming easily annoyed or irritable: 2 = More than half the days Feeling afraid as if something awful might happen: 3 = Nearly every day Total JOSH-7 score (0-4 normal; 5-9 mild; 10-14 moderate; 15-21 severe): 15 Source: Developed by Drs. Eliecer Mcghee, Mariya La, Abel Martinez and colleagues, with an educational chante from [employer]. JOSH-7 Assessment Billing JOSH-7 Assessment Tool: JOSH-7 Assessment 27173 Review of Systems Card Reports chest pain at rest Physical exam (Primary Care) Vital Signs: Last Vital Signs BP 120/80 02/21/24 12:35 BMI result Body Mass Index 32.3 BMI Assessment/Plan discussion: High BMI High, discussed plan: lifestyle, weight reduction, dietary and physical activity Tobacco/Smoking Status: Tobacco use Status Tobacco use date assessed 01/10/24 02/21/24 12:39 Patient Tobacco Use Status Never used Tobacco 02/21/24 12:39 e-Cigarette/Vaping Use Never Used 02/21/24 12:39 PHQ-9: PHQ-9 Score PHQ-9: Total score 6 02/21/24 12:39 Depression Screening Interpretation: Positive Depression Screening Follow-up: Existing condition, Follow-up Visit Requested and Declines treatment Thrive Assessment: Date of Thrive Assessment Date Thrive assessed 02/21/24 02/21/24 12:39 Currently or been in a relationship where the following occur: No concerns reported Assessment and Plan Assessment & Plan (1) Physical exam: Code(s): Z00.00 - Encounter for general adult medical examination without abnormal findings Plan: Repeat in a year. (2) Left hip pain: Code(s): M25.552 - Pain in left hip Plan: X-ray ordered. (3) Chest pain: Code(s): R07.9 - Chest pain, unspecified Plan: EKG and labs order. (4) Mild recurrent major depression: Code(s): F33.0 - Major depressive disorder, recurrent, mild Plan: Declines treatment. Orders: Orders Vitamin D 25-OH (D2 and D3) Today E55.9 - Vitamin D deficiency, unspecified Vitamin B12 and Folate Today E53.8 - Deficiency of other specified B group vitamins Lipid Panel Today E78.5 - Hyperlipidemia, unspecified ECG 12 lead EKG Today R07.9 - Chest pain, unspecified Complete Blood Count Auto Diff Today D64.9 - Anemia, unspecified IRON PROFILE Today D64.9 - Anemia, unspecified Comprehensive [place]. Panel Fast Today Z00.00 - Encounter for general adult medical examination without abnormal findings XR hip LT min 2V Today M25.552 - Pain in left hip Coding Level of Care Code Est Pt Level 3 (85533) Est Pt Prev Care 18-39y(19000) Diagnoses Physical exam Z00.00 Left hip pain M25.552 Chest pain R07.9 Mild recurrent major depression F33.0 Additional Codes JOSH-7 Assessment Billing - JOSH-7 Assessment Tool: JOSH-7 Assessment 18875 ([id number]) Time Spent (min) 31
[2024-02-21 12:35] VITALS: BP 120/80; BMI 32.3
== END 2024-02-21 12:57 | disposition home or self-care (01) ==
PROVIDERS: PCP Internal Medicine; Visit Provider Internal Medicine
DX: Z00.00 Encounter for general adult medical examination without abnormal findings (principal); M25.552 Pain in left hip; R07.9 Chest pain, unspecified; F33.0 Major depressive disorder, recurrent, mild

== ENCOUNTER → 2024-02-21 12:26 | Outpatient (BNVA) | payer OTHER, SELFPAY | PROVIDERS: PCP Internal Medicine; Visit Provider Internal Medicine | DX: Z00.01 Encounter for general adult medical examination with abnormal findings (principal); R07.9 Chest pain, unspecified; M25.552 Pain in left hip; F33.0 Major depressive disorder, recurrent, mild | CPT/HCPCS: 96127; 99212; 99395 ==

== ENCOUNTER 2024-12-04 13:34 | Outpatient (AMB) | payer OTHER, SELFPAY ==
--- NOTE | 2024-12-04 13:51 | MHC.PC.OV ---
Vital Signs 12/04/24 13:57 Height 4 ft 11 in Weight 162 lb BMI 32.7 BP 112/80 Blood Pressure Location Lt brachial Position Sitting Intake Visit Reasons: [facility] 11/27 Vertigo Winch Runner Required: No Accompanied by: Self / Same As Patient Allergies shellfish derived Allergy (Mild, Verified 12/04/24 14:16) Swelling dog dander Allergy (Unknown, Verified 12/04/24 14:16) Unknown Fish Containing Products Allergy (Unknown, Verified 12/04/24 14:16) Unknown cat dander Allergy (Verified 12/04/24 14:16) Unknown gauze Adverse Reaction (Mild, Uncoded 12/04/24 14:16) rash, itch, redness Medication List - Last Reconciled 12/04/24 by Mona Cole MD ibuprofen 600 mg PO Q8H PRN meclizine 12.5 mg PO TID PRN potassium chloride ER 10 mEq PO DAILY Tobacco use date assessed: 12/04/24 Dental Screening Dental Screen Date: 12/04/24 Did you have a dental visit in the last 12 months?: Yes Did you have a dental problem in the last 6 months where you did not have access to dental care?: No Was dental information given to patient?: Patient has dentist HPI HPI Comments History of Present Illness Details The patient is a 34-year-old female presenting with dizziness, nausea, blurred vision, headache, and vomiting. The symptoms began on November 26, with a sensation of pressure and headache, for which she took extra strength Tylenol due to the absence of Motrin. She experienced fatigue and difficulty sleeping, followed by nausea and dizziness upon waking the next morning. Her vision became blurry, prompting her sister to call an ambulance. At the hospital, she began vomiting and was treated with meclizine and ondansetron, which alleviated the nausea but not the dizziness. A CT scan was performed, showing no alarming findings, and laboratory results were normal. [facility] Medical History (Updated 12/05/24 @ 09:01 by Mona Cole MD) Costochondritis Migraines Obesity Left ovarian cyst Early stage of Surgical History History of D&C Family History Father High cholesterol Arthritis Diabetes Hypertension Mother Diabetes Maternal Grandmother Breast cancer Social History Housing: Apartment (Living in a group home) Alcohol intake: never Patient Tobacco Use Status: Never used Tobacco e-Cigarette/Vaping Use: Never Used Second Hand Smoke Exposure: No service: No Current occupational status: unemployed Sexual orientation: Straight/Heterosexual Gender identity: Female Cognitive needs: No Hearing needs: No Vision needs: No Female Reproductive History Menstrual Age of Menarche: 13 Questionnaire PHQ-9 Over the last 2 weeks, how often have you been bothered by any of the following problems? 1. Little interest or pleasure in doing things: not at all 2. Feeling down, depressed, or hopeless: not at all 3. Trouble falling or staying asleep, or sleeping too much: several days 4. Feeling tired or having little energy: several days 5. Poor appetite or overeating: several days 6. Feeling bad about yourself - or that you are a failure or have let yourself or your family down: not at all 7. Trouble concentrating on things, such as reading the newspaper or watching television: not at all 8. Moving or speaking so slowly that other people could have noticed. Or the opposite - being so fidgety or restless that you have been moving around a lot more than usual: nearly every day 9. Thoughts that you would be better off or of hurting yourself in some way: not at all Total score: 6 Depression Screening Interpretation: Positive Depression Screening Follow-up: Existing condition, In treatment and Follow-up Visit Requested Depression Screening Done: Yes 48416 - PHQ-9 Billing: Yes Source: Developed by Drs. Eliecer Mcghee, Mariya La, Abel Martinez and colleagues, with an educational chante from [employer]. Thrive Questionnaire Date Thrive assessed: 12/04/24 I am a: Patient What is your living situation today?: I have a steady place to live Within the past 12 months, did the food you bought not last and you didn't have the money to get more?: Never true Within the past 12 months, did you worry whether your food would run out before you got money to buy more?: Never true Do you have trouble paying for medicines?: No Do you have trouble getting transportation to medical appointments?: No Do you have trouble paying your heating and electricity bill?: No Do you have trouble taking care of your child, family member or friend?: No Do you have trouble with day-to-day activities such as bathing, preparing meals, shopping, managing finances, etc.?: Yes Are you currently unemployed and looking for a job?: I choose not to answer this question Are you interested in more education?: No Please select the resources that you would like help with: None Currently or been in a relationship where the following occur: I choose not to answer THRIVE Score: 0 AUDIT C Alcohol Use Questionnaire (AUDIT-C) 1. How often do you have a drink containing alcohol?: Never Total Score: 0 Score Reviewed/Action Taken: No JOSH-7 AMB Questionnaire JOSH-7 Date JOSH - 7 assessed: 12/04/24 Feeling nervous, anxious, or on edge: 0 = Not at all Not being able to stop or control worryin = Not at all Worrying too much about different things: 0 = Not at all Trouble relaxin = Not at all Being so restless that it is hard to sit still: 2 = More than half the days Becoming easily annoyed or irritable: 0 = Not at all Feeling afraid as if something awful might happen: 0 = Not at all Total JOSH-7 score (0-4 normal; 5-9 mild; 10-14 moderate; 15-21 severe): 2 Source: Developed by Drs. Eliecer Mcghee, Mariya La, Abel Martinez and colleagues, with an educational chante from [employer]. JOSH-7 Assessment Billing JOSH-7 Assessment Tool: JOSH-7 Assessment 45770 Review of Systems Const All systems reviewed & are unremarkable except as noted in HPI and below ENT Reports dizziness Card Denies chest pain at rest, Denies chest pain with activity, Denies edema, Denies irregular heart rhythm, Denies claudication, Denies dyspnea, Denies dyspnea on exertion, Denies orthopnea, Denies paroxysmal nocturnal dyspnea and Denies slow heart rate Resp Denies cough, Denies dyspnea and Denies dyspnea on exertion GI Denies abdominal pain, Denies change in bowel habits, Denies excessive flatus, Denies nausea and Denies vomiting Denies urinary incontinence, Denies urinary hesitancy and Denies urinary urgency Neuro Denies confusion, Reports dizziness and Denies lack of coordination Psych Denies confusion Physical exam (Primary Care) Vital Signs: Last Vital Signs BP 112/80 12/04/24 13:57 BMI result Body Mass Index 32.7 BMI Assessment/Plan discussion: High BMI High, discussed plan: lifestyle, weight reduction, dietary and physical activity Tobacco/Smoking Status: Tobacco use Status Tobacco use date assessed 12/04/24 12/04/24 13:59 Patient Tobacco Use Status Never used Tobacco 12/04/24 13:52 e-Cigarette/Vaping Use Never Used 12/04/24 13:52 PHQ-9: PHQ-9 Score PHQ-9: Total score 6 12/04/24 14:19 Depression Screening Interpretation: Positive Depression Screening Follow-up: Existing condition, In treatment and Follow-up Visit Requested Thrive Assessment: Date of Thrive Assessment Date Thrive assessed 12/04/24 12/04/24 13:52 Currently or been in a relationship where the following occur: I choose not to answer Const General: No confusion Orientation/consciousness: No confusion HENMT Ears: external ears normal Resp Effort & Inspection: normal respiratory effort Auscultation: clear to auscultation bilaterally Cardio Jugular venous distension: no JVD Rate: regular rate Rhythm: regular rhythm Heart sounds: S1 normal heart sound present and S2 normal heart sound present Neuro General: no focal motor deficits and No confusion Romberg Test: Negative Extrem General: Yes full ROM Coding Level of Care Code Est Pt Level 4 (37933) Complex EM visit Add On G2211 Diagnoses Mild recurrent major depression F33.0 BPPV (benign paroxysmal positional vertigo) H81.10 Migraines G43.909 Insomnia G47.00 Additional Codes JOSH-7 Assessment Billing - JOSH-7 Assessment Tool: JOSH-7 Assessment 28477 ([id number]) PHQ-9 - 74740 - PHQ-9 Billing: Yes ([id number]) Time Spent (min) 22 Assessment & Plan Assessment & Plan (1) Mild recurrent major depression: Code(s): F33.0 - Major depressive disorder, recurrent, mild Category: Medical (2) BPPV (benign paroxysmal positional vertigo): Code(s): H81.10 - Benign paroxysmal vertigo, unspecified ear Category: Medical (3) Migraines: Code(s): G43.909 - Migraine, unspecified, not intractable, without status migrainosus Category: Medical (4) Insomnia: Code(s): G47.00 - Insomnia, unspecified Category: Medical Plan The plan includes referral to neurology for further evaluation of headaches and dizziness. Vestibular therapy is recommended to address dizziness, potentially related to inner ear issues. The patient is advised to continue with meclizine as needed for dizziness and ondansetron for nausea. Follow-up is suggested to monitor symptoms and adjust treatment as necessary. Patient was informed and verbally consented to the use of an ambient scribe for clinic note documentation during this visit. Orders: Orders PT Evaluation and Treatment 12/04/24 H81.10 - Benign paroxysmal vertigo, unspecified ear Potassium 12/04/24 E87.6 - Hypokalemia Referrals Neurology Referral G43.909 - Migraine, unspecified, not intractable, without status migrainosus Medications: New meclizine 25 mg PO BID PRN 10 tabs 0RF dizziness 5 days Patient Instructions: - Continue taking meclizine as needed for dizziness. - Use ondansetron for nausea as directed. - Attend vestibular therapy sessions as scheduled. - Follow up with neurology for further evaluation. - Monitor symptoms and report any changes.
[2024-12-04 13:57] VITALS: BP 112/80; BMI 32.7
== END 2024-12-04 14:29 | disposition home or self-care (01) ==
LOC: HO.HMCH 13:35
PROVIDERS: PCP Internal Medicine; Visit Provider Internal Medicine
DX: F33.0 Major depressive disorder, recurrent, mild (principal); H81.10 Benign paroxysmal vertigo, unspecified ear; G43.909 Migraine, unspecified, not intractable, without status migrainosus; G47.00 Insomnia, unspecified

== ENCOUNTER → 2024-12-04 13:34 | Outpatient (BNVA) | payer OTHER, SELFPAY | PROVIDERS: PCP Internal Medicine; Visit Provider Internal Medicine | DX: F33.0 Major depressive disorder, recurrent, mild (principal); H53.8 Other visual disturbances; R11.2 Nausea with vomiting, unspecified; H81.10 Benign paroxysmal vertigo, unspecified ear; G43.909 Migraine, unspecified, not intractable, without status migrainosus; G47.00 Insomnia, unspecified; E87.6 Hypokalemia | CPT/HCPCS: 96127; 99212 ==

== ENCOUNTER 2024-12-12 07:53 | Outpatient (RCR) | payer OTHER, SELFPAY ==
[2024-12-12 08:05] VITALS: BP 120/76; PULSE 77
--- NOTE | 2024-12-12 09:12 | MHC.PT.EP ---
[facility] [place] Office [place] Office [place] Office [address] Stepan Baltazar [address] [phone] F: [phone] F: [phone] F: [phone] F: [phone] Physical Therapy Plan of Care Date of Evaluation: Date of Surgery: Diagnosis: BPPV Assessment: 34 y/o female referred to PT with BPPV. Reports room-spinning dizziness that is constant and worsened with head movements starting about 2 weeks ago. She went to [facility] ED and Brain MRI was WNL per pt. Reports B ears feel full, she had n/v initially but this has improved. Examination shows normal oculomotor, negative VBI, impaired balance with eyes closed situations, 20/24 DGI with greatest impairments during head turns, and negative for BPPV all canals. At this time, pt presents with vestibular hypofunction and distributed HEP. Educated pt if sx worsen or change to f/u with MD. Frequency and Duration: The patient will be seen 1x/week for 6 weeks Short Term Goals: I with HEP Alf Goals: 6 weeks Pt to be able to functionally move in all planes without provocation of dizziness and return to PLOF Pt will look up to rinse hair in shower without LOB or dizziness Pt will bend over to tie shoes without dizziness or difficulty Pt to be educated on sx and indications to return to therapy when needed in 4 weeks Treatment Plan: Modalities to reduce pain, spasms and effusion. Manual therapy to restore motion and function. Therapeutic exercise to improve strength and flexibility. Neuromuscular re-education for posture and balance. Therapeutic activities to return to functional activities of daily living. Electronically signed by: Vidhya Chan PT Please sign and return to therapist. Thank you for your referral.
--- NOTE | 2025-01-21 13:00 | MHC.PT.DC ---
[facility] [place] Office [place] Office [place] Office [address] Stepan Baltazar [address] [phone] F: [phone] F: [phone] F: [phone] F: [phone] Physical Therapy Discharge Report Diagnosis: BPPV Date of Surgery: Date of Evaluation: 12/12/24 Date of Discharge: 01/21/25 Treatments to Date: 1 Cancellations to Date: 0 No Shows to Date: 0 Discharge Status: Discharge Summary: Pt was evaluated for BPPV and was negative however did present with mild hypofunction sx. Distributed HEP at evalution. Pt no showed next visit and at this time is d/c Electronically signed by: Vidhya Chan PT Please sign and return to therapist. Thank you for your referral.
== END 2025-01-21 13:00 | disposition home or self-care (01) ==
LOC: HO.PT 07:53
PROVIDERS: PCP Internal Medicine; Visit Provider Internal Medicine
DX: H81.10 Benign paroxysmal vertigo, unspecified ear (principal)
CPT/HCPCS: 97112; 97161

== ENCOUNTER 2024-12-12 08:07 | Outpatient (RCR) | payer OTHER, SELFPAY | END 2025-03-27 14:35 | disposition home or self-care (01) | LOC: HO.PT 08:07 | PROVIDERS: PCP Internal Medicine; Visit Provider Internal Medicine | DX: H81.10 Benign paroxysmal vertigo, unspecified ear (principal) ==